=== PATIENT | female | born 1970 | race Caucasian/White ===

== ENCOUNTER → 2017-10-12 | Outpatient (CLI) | payer BC ==
--- NOTE | 2017-10-13 07:58 | MAMMOGRAPHY REPORT ---
UNILATERAL RIGHT DIGITAL DIAGNOSTIC MAMMOGRAM TOMOSYNTHESIS WITH CAD AND TARGETED RIGHT ULTRASOUND: CLINICAL HISTORY: The patient reports clear spontaneous right nipple discharge approximately 3.5 week s ago. She denies any bloody nipple discharge, palpable lumps, nipple changes, or other complaints. TECHNIQUE: The study was acquired using full field digital technology and interpreted from soft copy. Breast tomosynthesis in addition to standard 2D mammography was performed. Current study was also ev aluated with a Computer Aided Detection (CAD) system. Right CC and MLO 2D and tomosynthesis images a nd spot magnification right cc and ML views were obtained. COMPARISON: Comparison is made to exams dated: 02/03/2017 mammogram, 01/29/2016 mammogram, 5 mammogram, 02/01/2014 ultrasound, 01/09/2014 mammogram, and 12/13/2012 mammogram - [facility] BREAST COMPOSITION: There are scattered areas of fibroglandular density in right breast. FINDINGS: There are no suspicious masses, calcifications, or areas of architectural distortion noted in the right breast mammographically. There has been no significant interval change compared to prio r exams. Targeted ultrasound was performed of the right subareolar breast, which shows sonographically normal tissue without evidence of an intraductal mass or other suspicious sonographic abnormality. IMPRESSION: ACR BI-RADS CATEGORY 2: BENIGN, ULTRASOUND ACR BI-RADS CATEGORY 2: BENIGN No intraductal mass or other suspicious mammographic or sonographic abnormality to explain clear righ t nipple discharge. There is no mammographic or sonographic evidence of malignancy. Recommend clini laura follow-up for nipple discharge; if symptoms recur, consider surgical consultation. Also recommen d return to annual mammogram screening schedule, due January 2018. The patient has been verbally not ified of the results. Some breast cancers are not detected with mammography. A negative mammographic report should not gerald y biopsy if a clinically suggestive mass is present. Deysi Flower M.D. ah/:10/12/2017 14:06:44 Sales Service Technician: RT Maty(R)(M), [facility]; Deysi Flower MD, [facility] letter sent: Normal 1/2 OVERALL STUDY BIRADS: 2 Benign
== END | disposition home or self-care (01) ==
LOC: C.MAMM 10:38
PROVIDERS: ATTEND Nurse Practitioner Women's Health
DX: N64.52 Nipple discharge (principal)